=== PATIENT | female | born 1985 | race Two or more races ===

== ENCOUNTER 2018-02-20 11:29 | Emergency (ER) | payer OTHER ==
[~2018-02-20] VITALS: Ht 172.7 cm; Wt 49.9 kg
[2018-02-20 11:57] VITALS: BP 106/63
[2018-02-20] MEDS ORDERED: DiphenhydrAMINE 50mg/ml Inj IVP ONE (12:00)
[2018-02-20] MEDS ORDERED: Solu-MEDROL 125mg Inj IVP ONE (12:00)
[2018-02-20] MEDS: Morphine Sulfate 4mg/ml Inj IVP ONE ×2 (12:13→12:22)
[2018-02-20 12:15] LABS: BASOPHILS % (AUTO) 1.1 % (0.0-2.0); EOSINOPHILS % (AUTO) 7.1 % (0.0-3.0); HEMATOCRIT 44.5 % (37.0-47.0); HEMOGLOBIN 14.4 G/DL (12.0-16.0); LYMPHOCYTES % (AUTO) 26.7 % (20.0-45.0); MEAN CORPUSCULAR VOLUME 91 FL (80-99); MONOCYTES % (AUTO) 9.5 % (1.0-10.0); NEUTROPHILS % (AUTO) 55.6 % (45.0-75.0); PLATELET COUNT 235 K/UL (150-450); RED BLOOD COUNT 4.87 M/UL (4.20-5.40); RED CELL DISTRIBUTION WIDTH 12.2 % (11.6-14.8); WHITE BLOOD COUNT 5.5 K/UL (4.8-10.8)
[2018-02-20 12:29] LABS: APPEARANCE,URINE CLEAR; BILIRUBIN, URINE NEGATIVE (NEGATIVE); COLOR,URINE PALE YELLOW; GLUCOSE, URINE (UA) NEGATIVE (NEGATIVE); KETONES,URINE NEGATIVE (NEGATIVE); LEUKOCYTE ESTERASE ,URINE NEGATIVE (NEGATIVE); NITRITE,URINE NEGATIVE (NEGATIVE); PH,URINE 6.5 (4.5-8.0); PROTEIN,URINE NEGATIVE (NEGATIVE); UROBILINOGEN,URINE NORMAL MG/DL (0.0-1.0)
[2018-02-20] MEDS ORDERED: cefTRIAXone 1 GM in NS 55 ML IVPB ONE (12:30)
[2018-02-20 12:38] LABS: ANION GAP 7 mmol/L (5-15); BLOOD UREA NITROGEN 10 mg/dL (7-18); CALCIUM 8.9 MG/DL (8.5-10.1); CARBON DIOXIDE 28 MMOL/L (21-32); CHLORIDE 102 MMOL/L (98-107); CREATININE 0.9 MG/DL (0.55-1.30); POTASSIUM 3.6 MMOL/L (3.5-5.1); SODIUM 137 MMOL/L (136-145)
[2018-02-20 12:43] LABS: ALANINE AMINOTRANSFERASE 25 U/L (12-78); ALBUMIN/GLOBULIN RATIO 0.9 (1.0-2.7); ALKALINE PHOSPHATASE 66 U/L (46-116); ASPARTATE AMINO TRANSFERASE 18 U/L (15-37); BILIRUBIN,TOTAL 0.3 MG/DL (0.2-1.0)
[2018-02-20] MEDS ORDERED: DIPHENHYDRAMINE25 M1 ORAL (13:37)
[2018-02-20] MEDS ORDERED: RANITIDINE HCL150 MG ORAL (13:37)
[2018-02-20] MEDS ORDERED: PREDNISONE20 MG ORAL (13:37)
[2018-02-20 13:50] VITALS: BP 110/68
--- NOTE | 2018-02-20 13:53 | Emergency Room Report ---
History of Present Illness General Chief Complaint: Allergic Reaction Source: Patient Present Illness HPI 32-year-old female presents ED complaining of swelling and redness to both eyes. Started this morning. Patient states that she thinks is an allergic reaction. As had similar episode a few years back and was treated with "herbal remedy" outside of the [place]. Denies any known food or drug allergies. Patient denies any pain. Notes itchiness. Denies any photophobia or blurry vision. No other aggravating or relieving factors. Denies any other associated symptoms Allergies: Coded Allergies: No Known Allergies (Unverified , 02/20/18) Patient History Past Medical History: none Past Surgical History: none Pertinent Family History: none Social History: Denies: smoking, alcohol use, drug use Last Menstrual Period: 02/16/18 Now: No Immunizations: UTD Reviewed Nursing Documentation: PMH: Agreed; PSxH: Agreed Nursing Documentation-PMH Past Medical History: No Stated History Review of Systems All Other Systems: negative except mentioned in HPI Physical Exam Vital Signs Date Time Temp Pulse Resp B/P (MAP) Pulse Ox O2 Delivery O2 Flow Rate FiO2 02/20/18 11:34 97.8 78 17 114/77 95 Room Air 97.9 Sp02 EP Interpretation: reviewed, normal General Appearance: no apparent distress, alert, GCS 15, non-toxic Head: normocephalic, atraumatic Eyes: bilateral eye normal inspection, bilateral eye PERRL, bilateral eye other - swelling/erythema bilateral eyelids ENT: hearing grossly normal, normal pharynx, no angioedema, normal voice Neck: full range of motion, supple/symm/no masses Respiratory: chest non-tender, lungs clear, normal breath sounds, speaking full sentences Cardiovascular #1: regular rate, rhythm, no edema Cardiovascular #2: 2+ carotid (R), 2+ carotid (L), 2+ radial (R), 2+ radial (L) , 2+ dorsalis pedis (R), 2+ dorsalis pedis (L) Gastrointestinal: normal bowel sounds, non tender, soft, non-distended, no guarding, no rebound Rectal: deferred Genitourinary: normal inspection, no CVA tenderness Musculoskeletal: back normal, gait/station normal, normal range of motion, non- tender Neurologic: alert, oriented x3, responsive, motor strength/tone normal, sensory intact, speech normal Psychiatric: judgement/insight normal, memory normal, mood/affect normal, no suicidal/homicidal ideation Reflexes: 3+ bicep (R), 3+ bicep (L), 3+ tricep (R), 3+ tricep (L), 3+ knee (R) , 3+ knee (L) Skin: other - swelling/redness bilateral eyelids Lymphatic: no adenopathy Medical Decision Making Diagnostic Impression: Primary Impression: Allergic reaction Qualified Codes: T78.40XA - Allergy, unspecified, initial encounter ER Course Hospital Course 32-year-old female presents ED with redness and swelling to bilateral eyelids and periorbital area Differential diagnoses include: allergic reaction, angioedema, cellulitis, Clinical course Patient placed on stretcher. media monitor. After initial history and physical, I ordered Solu-Medrol, Benadryl, pepcid, IV fluids Labs reviewed - electrolytes okay, no leukocytosis, hemoglobin/hematocrit okay Patient evaluated by Dr. West (ID) at bedside. She does not believe that this is a periorbital cellulitis. Presentation more consistent with an allergic reaction. On reassessment the symptoms are improving after the medications. At this time I do not believe patient requires CT or additional medications. Patient will be discharged on prednisone, Benadryl, Zantac i. I feel this is a highly complex case requiring extensive working including EKG/Rhythm strip, Xray/CT/US, Blood/urine lab work, repeat exams while in ED, and administration of strong opiates/narcotics for pain control, admission to hospital or close patient follow up. Diagnosis - allergic reaction Stable and discharged to home with prescriptions for Zantac, prednisone, Benadryl. Followup with PMD. Return to ED if symptoms recur or worsen Labs Test 02/20/18 12:00 White Blood Count 5.5 K/UL (4.8-10.8) Red Blood Count 4.87 M/UL (4.20-5.40) Hemoglobin 14.4 G/DL (12.0-16.0) Hematocrit 44.5 % (37.0-47.0) Mean Corpuscular Volume 91 FL (80-99) Mean Corpuscular Hemoglobin 29.5 PG (27.0-31.0) Mean Corpuscular Hemoglobin Concent 32.3 G/DL (32.0-36.0) Red Cell Distribution Width 12.2 % (11.6-14.8) Platelet Count 235 K/UL (150-450) Mean Platelet Volume 6.3 FL (6.5-10.1) Neutrophils (%) (Auto) 55.6 % (45.0-75.0) Lymphocytes (%) (Auto) 26.7 % (20.0-45.0) Monocytes (%) (Auto) 9.5 % (1.0-10.0) Eosinophils (%) (Auto) 7.1 % (0.0-3.0) Basophils (%) (Auto) 1.1 % (0.0-2.0) Urine Color Pale yellow Urine Appearance Clear Urine pH 6.5 (4.5-8.0) Urine Specific [place] 1.005 (1.005-1.035) Urine Protein Negative (NEGATIVE) Urine Glucose (UA) Negative (NEGATIVE) Urine Ketones Negative (NEGATIVE) Urine Occult Blood Negative (NEGATIVE) Urine Nitrite Negative (NEGATIVE) Urine Bilirubin Negative (NEGATIVE) Urine Urobilinogen Normal MG/DL (0.0-1.0) Urine Leukocyte Esterase Negative (NEGATIVE) Urine HCG, Qualitative Negative (NEGATIVE) Sodium Level 137 MMOL/L (136-145) Potassium Level 3.6 MMOL/L (3.5-5.1) Chloride Level 102 MMOL/L (98-107) Carbon Dioxide Level 28 MMOL/L (21-32) Anion Gap 7 mmol/L (5-15) Blood Urea Nitrogen 10 mg/dL (7-18) Creatinine 0.9 MG/DL (0.55-1.30) Estimat Glomerular Filtration Rate > 60 mL/min (>60) Glucose Level 69 MG/DL (74-106) Calcium Level 8.9 MG/DL (8.5-10.1) Total Bilirubin 0.3 MG/DL (0.2-1.0) Aspartate Amino Transf (AST/SGOT) 18 U/L (15-37) Alanine Aminotransferase (ALT/SGPT) 25 U/L (12-78) Alkaline Phosphatase 66 U/L (46-116) Total Protein 8.7 G/DL (6.4-8.2) Albumin 4.0 G/DL (3.4-5.0) Globulin 4.7 g/dL Albumin/Globulin Ratio 0.9 (1.0-2.7) Last Vital Signs Date Time Temp Pulse Resp B/P (MAP) Pulse Ox O2 Delivery O2 Flow Rate FiO2 02/20/18 12:22 97.8 02/20/18 11:57 72 18 106/63 100 Room Air Status: improved Disposition: HOME, SELF-CARE Condition: Stable Scripts Ranitidine Hcl* (ZANTAC*) 150 Mg Tablet 150 MG ORAL TWICE A DAY, #30 TAB Prov: Wilfred Cahvez MD 02/20/18 Diphenhydramine Hcl* (DIPHENHYDRAMINE HCL*) 25 Mg Capsule 25 MG ORAL Q6H PRN for Itching for 5 Days, #30 CAP 0 Refills Prov: Wilfred Chavez MD 02/20/18 Prednisone* (PREDNISONE*) 20 Mg Tablet 40 MG ORAL DAILY, #10 TAB Prov: Wilfred Chavez MD 02/20/18 Referrals: NOT CHOSEN [facility]/,REFERRING (PCP) Patient Instructions: Food Allergy, [id number] Wilfred Chavez MD February 20, 2018 13:53
--- NOTE | 2018-02-20 17:00 | Consultation ---
DATE OF CONSULTATION: 02/20/2018 INFECTIOUS DISEASE CONSULTATION CONSULTING PHYSICIAN: Juan Antonio West M.D. REFERRING PHYSICIAN: Wilfred Chavez M.D. REASON FOR CONSULTATION: Allergic reaction. HISTORY OF PRESENTING ILLNESS: This is a 32-year-old lady with history of atopic dermatitis and multiple allergies who came in with swelling and redness and closing of her eyes since last night. She thinks she ate a banana, which could have been and she is allergic to pesticides and she has some discomfort over her eyes with redness and an Infectious Diseases consultation has been obtained. PAST MEDICAL HISTORY: History of atrophic dermatitis. MEDICATIONS: She has received famotidine, Benadryl, Solu-Medrol, and morphine. ALLERGIES: No known drug allergies. She has multiple environmental allergies including pesticides. SOCIAL HISTORY: She does not smoke, drink, or use drugs. FAMILY HISTORY: Noncontributory. REVIEW OF SYSTEMS: RESPIRATORY: No fever, chills, cough, shortness of breath or chest pain. CARDIAC: No chest pain. No palpitation. No dizziness. No syncope. GASTROINTESTINAL: No nausea. No vomiting. No abdominal pain or diarrhea. MUSCULOSKELETAL: She complains of discomfort over the eyes. She says it is getting better now. PHYSICAL EXAMINATION: VITAL SIGNS: Temperature of 97.8 degrees, T-max of 97.8 degrees, pulse of 72, respiratory rate of 18, blood pressure 106/63 and O2 saturation of 100%. HEENT: She has bilateral erythema and swelling over her upper eyelids and around the eyes. She is able to open her eyes currently. She also has some erythematous spotty areas over her face. NECK: Supple. No adenopathy. No JVD. CARDIOVASCULAR: Regular rate and rhythm. No murmurs. LUNGS: Clear to auscultation bilaterally. No crackles. No wheezes. ABDOMEN: Soft and nontender. No organomegaly. EXTREMITIES: No cyanosis, no clubbing, and no edema. LABORATORY AND DIAGNOSTIC DATA: White count 5.5, hemoglobin 14.4, hematocrit 44.5, MCV 91, and platelet count of 235 and neutrophils of 55%. Sodium 137, potassium 3.6, chloride 102, bicarbonate 28, BUN 10, creatinine 0.9, glucose 69. Calcium 8.9. UA showing LE negative. ASSESSMENT: 1. This is a 32-year-old lady with history of atopic dermatitis who comes in with bilateral swelling and redness over her upper eyelids, could be secondary to an allergic reaction that is resolving with steroids and Benadryl. 2. Atopic dermatitis. PLAN: Continue steroids with Medrol Dosepak and antihistamine. I would like to thank, Dr. Wilfred Chavez, for this consultation. Juan Antonio West M.D. DR: AREN JOB#: [id number] CC: Wilfred Chavez M.D.
== END 2018-02-20 13:56 | disposition home or self-care (01) ==
LOC: EMR 12:24
DX: T78.40XA Allergy, unspecified, initial encounter (principal); X58.XXXA Exposure to other specified factors, initial encounter; L20.9 Atopic dermatitis, unspecified
CPT/HCPCS: 36415; 80053; 81003; 81025; 85025; 96360; 96374; 96375; 99284; J1200; J2930; S0028